=== PATIENT | male | born 1970 | race African-American/Black ===

== ENCOUNTER 2018-09-29 08:19 | Inpatient (IN) | payer OTHER ==
[2018-09-29 09:57] VITALS: BMI 24.5
--- NOTE | 2018-09-29 10:39 | HP ---
CIWA Score - Admission Criteria [facility] Guidelines: Admission for Medically Managed Detox: Requires at least one of the followin. CIWA greater than 12 2. Seizures within the past 24 hours 3. Delirium tremens within the past 24 hours 4. Hallucinations within the past 24 hours 5. Acute intervention needed for co occurring medical disorder 6. Acute intervention needed for co occurring psychiatric disorder 7. Severe withdrawal that cannot be handled at a lower level of care (continued vomiting, continued diarrhea, abnormal vital signs) requiring intravenous medication and/or fluids 8. Admission ROS [facility] - HPI Chief Complaint: i need help to stop drinking alcohol,cocaine,marijuana,k2 Allergies/Adverse Reactions: Allergies Allergy/AdvReac Type Severity Reaction Status Date / Time chlorpromazine HCl AdvReac Intermediate stiffness Verified 09/29/18 10:15 [From Thorazine] haloperidol [From Haldol] AdvReac Intermediate stiffness Verified 09/29/18 10:15 haloperidol lactate AdvReac Intermediate stiffness Verified 09/29/18 10:15 [From Haldol] History of Present Illness: this 48 years old male with alcohol dependence,cocaine,marijuana dependence and k2,seeking help, history of bipolar disorder nicotine dependence seeking help weight loss for rehab as protocol Exam Limitations: No Limitations - Ebola screening Have you traveled outside of the country in the last 21 days: No Have you had contact with anyone from an Ebola affected area: No Have you been sick,other than usual withdrawal symptoms: No Do you have a fever: No - Review of Systems Constitutional: No Symptoms Reported EENT: reports: No Symptoms Reported Respiratory: reports: No Symptoms reported Cardiac: reports: No Symptoms Reported GI: reports: No Symptoms Reported : reports: No Symptoms Reported Musculoskeletal: reports: No Symptoms Reported Integumentary: reports: Dryness Neuro: reports: No Symptoms reported Endocrine: reports: No Symptoms Reported Hematology: reports: No Symptoms Reported Psychiatric: reports: No Sypmtoms Reported, Judgement Intact, Mood/Affect Appropiate, Orientated x3 (bipolar disorder) Patient History - Patient Medical History Hx Anemia: No Hx Asthma: No Hx Chronic Obstructive Pulmonary Disease (COPD): No Hx Cancer: No Hx Cardiac Disorders: No Hx Congestive Heart Failure: No Hx Hypertension: No Hx Hypercholesterolemia: No Hx Pacemaker: No HX Cerebrovascular Accident: No Hx Seizures: No Hx Dementia: No Hx Diabetes: No Hx Gastrointestinal Disorders: No Hx Liver Disease: No Hx Genitourinary Disorders: No Hx Sexually Transmitted Disorders: No Hx Renal Disease (ESRD): No Hx Thyroid Disease: No Hx Human Immunodeficiency Virus (HIV): No Hx Hepatitis C: No Hx Depression: Yes Hx Suicide Attempt: No Hx Bipolar Disorder: Yes (AND ANXIETY) Hx Schizophrenia: No Other Medical History: no suicidal,no homicidal - Patient Surgical History Past Surgical History: No Hx Neurologic Surgery: No Hx Cataract Extraction: No Hx Cardiac Surgery: No Hx Lung Surgery: No Hx Breast Surgery: No Hx Breast Biopsy: No Hx Abdominal Surgery: No Hx Appendectomy: No Hx Cholecystectomy: No Hx Genitourinary Surgery: No Hx Section: No Hx Orthopedic Surgery: No Anesthesia Reaction: No - PPD History Previous Implant?: Yes Documented Results: Negative w/o proof Implanted On Prior R Admission?: Yes Date: 01/22/15 Results: 0 mm PPD to be Administered?: Yes - Smoking Cessation Smoking history: Current every day smoker Have you smoked in the past 12 months: Yes Aproximately how many cigarettes per day: 40 Cigars Per Day: 0 Hx Chewing Tobacco Use: No Initiated information on smoking cessation: Yes 'Breaking Loose' booklet given: 09/29/18 - Substance & Tx. History Hx Alcohol Use: Yes Hx Substance Use: Yes Substance Use Type: Alcohol, Cocaine, Marijuana Hx Substance Use Treatment: Yes ([facility]) - Substances Abused Alcohol Route: Oral Frequency: 1-2 times per week Amount used: 2 pints whiskey Age of first use: 15 Date of Last Use: 09/15/18 Crack Route: Smoking Frequency: Daily Amount used: $180 and up Age of first use: 29 Date of Last Use: 09/28/18 Marijuana/Hashish Route: Smoking Frequency: 1-2 times per week Amount used: 1 joint Age of first use: 13 Date of Last Use: 09/15/18 K2 Route: Smoking Frequency: 1-2 times per week Amount used: 1 joint Age of first use: 29 Date of Last Use: 07/01/18 Family Disease History - Family Disease History Family Disease History: Other: Father (alcohol,), Mother (alcohol, htn , ), Sister (alcohol and cocaine) Admission Physical Exam [facility] - Vital Signs Vital Signs: Vital Signs - 24 hr 09/29/18 09:56 Temperature 96.6 F L Pulse Rate 84 Respiratory 18 Rate Blood Pressure 134/77 - Physical General Appearance: Yes: Within Normal Limits HEENTM: Yes: Normal ENT Inspection, PHILIP, Pharynx Normal Respiratory: Yes: Lungs Clear, Normal Breath Sounds, No Respiratory Distress Neck: Yes: Within Normal Limits, Supple, Trachea in good position Breast: Yes: Within Normal Limits Cardiology: Yes: Within Normal Limits, Regular Rhythm, Regular Rate, S1, S2 Abdominal: Yes: Within Normal Limits, Normal Bowel Sounds, Non Tender, Soft Genitourinary: Yes: Within Normal Limits Back: Yes: Within Normal Limits Musculoskeletal: Yes: Within Normal Limits Extremities: Yes: Within Normal Limits Neurological: Yes: apple sorter II-XII NML intact, Fully Oriented, Alert, Motor Strength 5/5 Integumentary: Yes: Dry Lymphatic: Yes: Within Normal Limits - Diagnostic (1) Alcohol dependence Current Visit: No Status: Acute (2) Weight decreased Current Visit: No Status: Active (3) Cannabis dependence Current Visit: No Status: Acute (4) Cocaine dependence Current Visit: No Status: Acute (5) Nicotine dependence Current Visit: No Status: Chronic (6) Bipolar disorder Current Visit: No Status: Deleted (7) Tinea pedis Current Visit: Yes Status: Acute Cleared for Admission S - Detox or Rehab Claeared for Rehab Admission: Yes [facility] Breath Alcohol Content Breath Alcohol Content: 0 Urine Drug Screen - Results Drug Screen Negative: No Urine Drug Screen Results: THC-Marijuana, DILAN-Cocaine Inpatient Rehab Admission - Initial Determination Are CD services needed?: Yes Free of communicable disease: Yes Not in need of hospitalization: Yes - Rehab Admission Criteria Previous failed treatment: Yes Poor recovery environment: Yes Comorbidities: Yes Lacks judgement: No Patient is meeting Inpatient Rehab admission criteria:: Yes
[2018-09-29] MEDS ORDERED: guaiFENesin/D-METHORPHAN HB 10 ML UNIT-DOSE CUPS PO PRN (10:47)
[2018-09-29] MEDS ORDERED: MENTHOL/PHENOL 1 EACH UD MM PRN (10:47)
[2018-09-29] MEDS ORDERED: IBUPROFEN 400 MG TABLET (FP) PO PRN (10:47)
[2018-09-29] MEDS ORDERED: MAGNESIUM CITRATE 300 ML BOTTLE PO PRN (10:47)
[2018-09-29] MEDS ORDERED: MAGNESIUM HYDROX 2400MG/30ML ORAL SUSPENSION 30 ML CUP PO PRN (10:47)
[2018-09-29] MEDS ORDERED: LOPERAMIDE HCL 2 MG CAPSULE PO PRN (10:47)
[2018-09-29] MEDS ORDERED: P-EPHED 60MG/TRIPROLIDI 2.5MG TABLET PO PRN (10:47)
[2018-09-29] MEDS ORDERED: MAG HYDROX/AL HYDROX/SIMETH 30 ML UNIT-DOSE CUP PO PRN (10:47)
[2018-09-29] MEDS: TOLNAFTATE 1% CREAM 15 GM TUBE TP SCH ×2 (11:46→22:01)
[2018-09-29] MEDS ORDERED: TUBERCULIN PPD 5 TU/0.1ML VIAL ID ONE (12:49)
[2018-09-29 14:04] LABS: HEMATOCRIT 41.6 % (35.4-49); HEMOGLOBIN 13.2 GM/dL (11.7-16.9); MCH 28.4 pg (25.7-33.7); MCHC 31.7 g/dl (32.0-35.9); MEAN CELL VOLUME 89.5 fl (80-96); MEAN PLT VOLUME 9.1 fl (7.5-11.1); PLATELET COUNT 226 K/MM3 (134-434); RBC 4.65 M/mm3 (4.00-5.60); RDW 14.1 % (11.9-15.9); WHITE BLOOD COUNT 5.7 K/mm3 (4.0-10.0)
[2018-09-29 14:41] LABS: ALBUMIN 3.5 g/dl (3.4-5.0); ALK PHOS 73 U/L (45-117); ANION GAP 6 MMOL/L (8-16); BILIRUBIN,TOTAL 0.4 mg/dL (0.2-1); BLOOD UREA NITROGEN 14 mg/dL (7-18); CALCIUM 8.9 mg/dL (8.5-10.1); CHLORIDE 105 mmol/L (98-107); CO2 29 mmol/L (21-32); CREATININE 1.2 mg/dL (0.55-1.3); GLUCOSE,RANDOM 100 mg/dL (74-106); POTASSIUM 4.1 mmol/L (3.5-5.1); SGOT/AST 23 U/L (15-37); SGPT/ALT 23 U/L (13-61); SODIUM 140 mmol/L (136-145); TOT PROT 7.2 g/dl (6.4-8.2)
--- NOTE | 2018-09-29 16:23 | PN ---
Psychiatric Progress Note Vital Signs: Vital Signs Period Temp Pulse Resp BP Sys/Landeros Pulse Ox Last 24 Hr 96.6 F 84 18 134/77 Current Medications: Active Medications Generic Name Dose Route Start Last Admin Trade Name Freq PRN Reason Stop Dose Admin Acetaminophen 650 mg 09/29/18 10:47 Tylenol - PO Q4H PRN FEVER Al Hydroxide/Mg Hydroxide 30 ml 09/29/18 10:47 Mylanta Oral Suspension - PO Q6H PRN DYSPEPSIA Divalproex Sodium 500 mg 09/29/18 22:00 Depakote - PO BID GLENN Eucalyptus/Menthol/Phenol/Sorbitol 1 each 09/29/18 10:47 Cepastat Lozenge - MM Q4H PRN SORE THROAT Guaifenesin 10 ml 09/29/18 10:47 Robitussin Dm - PO Q6H PRN COUGH Hydroxyzine Pamoate 50 mg 09/29/18 10:47 Vistaril - PO Q4H PRN AGITATION Loperamide HCl 4 mg 09/29/18 10:47 Imodium - PO Q6H PRN DIARRHEA Magnesium Citrate 300 ml 09/29/18 10:47 Citroma - PO Q48H PRN CONSTIPATION Magnesium Hydroxide 30 ml 09/29/18 10:47 Milk Of Magnesia - PO DAILY PRN CONSTIPATION Melatonin 5 mg 09/29/18 22:00 Melatonin PO HS PRN INSOMNIA Mirtazapine 45 mg 09/29/18 22:00 Remeron - PO HS GLENN Naproxen 500 mg 09/29/18 10:51 Naprosyn - PO Q12H PRN PAIN Nicotine Polacrilex 4 mg 09/29/18 10:47 Nicorette Gum - BUC Q2H PRN NICOTINE REPLACEMENT RX Multivit/Folic Acid/Iron 1 tab 09/30/18 10:00 Vitamins (Sjr) - PO DAILY GLENN Pseudoephedrine/Triprolidine 1 combo 09/29/18 10:47 Actifed - PO TID PRN NASAL CONGESTION Quetiapine Fumarate 200 mg 09/29/18 22:00 Seroquel - PO HS GLENN Thiamine HCl 100 mg 09/29/18 22:00 Vitamin B1 - PO HS GLENN Tolnaftate 1 applic 09/29/18 11:00 09/29/18 11:46 Tinactin 1% Cream - TP 1 applic BID GLENN Administration
--- NOTE | 2018-09-29 16:26 | PN ---
[facility] Progress Note Note: Called by nursing staff to order medication for newly admitted patient from [facility]. Medication reconcliation done. Depakote 500 mg po BID, Seroquel 200 mg po HS and Remeron 45 mg po HS ordered
--- NOTE | 2018-09-29 17:04 | EKG ---
Test Reason : Blood Pressure : / mmHG Vent. Rate : 079 BPM Atrial Rate : 079 BPM P-R Int : 130 ms QRS Dur : 078 ms QT Int : 382 ms P-R-T Axes : 068 032 068 degrees QTc Int : 438 ms NORMAL SINUS RHYTHM WITH SINUS ARRHYTHMIA NORMAL ECG NO PREVIOUS ECGS AVAILABLE Confirmed by MD ABNER, LUIS ([id number]) on 09/29/2018 5:03:45 PM Referred By: Confirmed By:LUIS LEVINE MD
[2018-09-29 17:23] LABS: URINE APPEARANCE CLEAR; URINE BILIRUBIN NEGATIVE (<2.0 mg/dL); URINE COLOR YELLOW; URINE GLUCOSE (UA) NEGATIVE (NEGATIVE); URINE KETONE NEGATIVE (NEGATIVE); URINE LEUK ESTERASE NEGATIVE (NEGATIVE); URINE NITRITE NEGATIVE (NEGATIVE); URINE PROTEIN NEGATIVE (NEGATIVE); URINE UROBILINOGEN NEGATIVE mg/dL (0.2-1.0)
[2018-09-29] MEDS: NICOTINE POLACRILEX 4 MG GUM BUC PRN (18:31)
[2018-09-29] MEDS: ACETAMINOPHEN 325 MG TABLET (FP) PO PRN (18:37)
[2018-09-29] MEDS: THIAMINE HCL 100 MG TABLET (FP) PO SCH (22:00)
[2018-09-29] MEDS: QUEtiapine FUMARATE 200 MG TABLET PO SCH (22:00)
[2018-09-29] MEDS: DIVALPROEX SODIUM 500 MG TABLET E.C. PO SCH (22:01)
[2018-09-29] MEDS: MIRTAZAPINE 15 MG TABLET (FP) PO SCH (22:01)
--- NOTE | 2018-09-30 07:51 | HP ---
Psychiatrist Admission - Data Date of interview: 09/30/18 Admission source: self-referred Identifying data: This is the first [facility] admission for this 48 years old Black male, father of 2 children, unemployed on SSD, homeless Medical History: Significant for history of herniated disc. Smokes cigarettes 2 ppd Psychiatric History: Patient reports that his first psyhiatric contact was at age 14 when he was admited to [facility] for auditory/visual hallucinations. He was diagnosed with Bipolar/Schizophrenia and started on psychotropic medications. Reports multiple subsequent admissions to various facilities including [facility], [facility] and most recently in August 2018 to [facility] for aggressivity and homicidal ideations. Reports receiving OPD care at [facility] in [place] and he is prescribed Depakote 500 mg po BID, Seroquel 200 mg po HS and Remeron 45 mg po HS. Denies previous suicidal attempt. At present, denies experiencing psychotic, manic or depressive symptoms, S/H ideations Physical/Sexual Abuse/Trauma History: Denies history of emotional, phusical or emotional abuse as well as DV relationship Additional Comment: Reports history of multiple previous arrest including one felony conviction. Denies being on parole/probation at present Vital Signs: Vital Signs - 24 hr 09/29/18 09/30/18 09/30/18 09:56 00:30 03:30 Temperature 96.6 F L Pulse Rate 84 Respiratory 18 18 18 Rate Blood Pressure 134/77 09/30/18 06:51 Temperature 97.4 F L Pulse Rate 97 H Respiratory 20 Rate Blood Pressure 114/78 Allergies/Adverse Reactions: Allergies Allergy/AdvReac Type Severity Reaction Status Date / Time chlorpromazine HCl AdvReac Intermediate stiffness Verified 09/29/18 10:15 [From Thorazine] haloperidol [From Haldol] AdvReac Intermediate stiffness Verified 09/29/18 10:15 haloperidol lactate AdvReac Intermediate stiffness Verified 09/29/18 10:15 [From Haldol] Date of last physical exam: 09/29/18 Concur with the findings of this exam: Yes - Substance Abuse/Tx History Hx Alcohol Use: Yes Hx Substance Use: Yes Substance Use Type: Alcohol (Started drinking alcohol at age 15, consumes 2 pints of whiskey 1-2 times weekly. Last drank on 09/15/18), Cocaine (Started smoking crack cocaine at age 29, consumes $180 woth daily. Last smoked on ), Marijuana (Startedsmoking marijuana at age 13 and k2 at age 29, consumes one joint of each marijuana & k2 1-2 times weekly. Last smoked marijuana on and k2 on 07/01/18) Hx Substance Use Treatment: Yes (4 previous inpt detox admissions @ [facility]) Mental Status Exam - Mental Status Exam Alert and Oriented to: Time, Place, Person Cognitive Function: Fair Patient Appearance: Well Groomed Patient Behavior: Cooperative Speech Pattern: Clear Voice Loudness: Normal Thought Process: Intact, Goal Oriented Thought Disorder: Not Present Hallucinations: Denies Suicidal Ideation: Denies Insight/Judgement: Fair Sleep: Poorly Appetite: Fair Muscle strength/Tone: Normal Gait/Station: Normal Psychiatric Findings - Problem List (Toney 1, 2,3) (1) Alcohol dependence Current Visit: No Status: Acute (2) Cocaine dependence Current Visit: No Status: Acute (3) Cannabis dependence Current Visit: No Status: Acute (4) Nicotine dependence Current Visit: No Status: Chronic (5) Schizoaffective disorder Current Visit: Yes Status: Chronic (6) Substance-induced sleep disorder Current Visit: Yes Status: Acute - Initial Treatment Plan Initial Treatment Plan: 1) Continue Seroquel 200 mg po HS, Depakote 500 mg po BID and Remeron 45 mg po HS. 2) Monitor progress
[2018-09-30] MEDS: TOLNAFTATE 1% CREAM 15 GM TUBE TP SCH ×2 (10:34→21:37)
[2018-09-30] MEDS: DIVALPROEX SODIUM 500 MG TABLET E.C. PO SCH ×2 (10:34→21:36)
[2018-09-30] MEDS: NAPROXEN 500 MG TABLET (FP) PO PRN (10:34)
[2018-09-30] MEDS: PRENATAL VITAMINS W/ FOLIC ACID TABLET (FP) PO SCH (10:34)
[2018-09-30] MEDS: THIAMINE HCL 100 MG TABLET (FP) PO SCH (21:36)
[2018-09-30] MEDS: MIRTAZAPINE 15 MG TABLET (FP) PO SCH (21:36)
[2018-09-30] MEDS: QUEtiapine FUMARATE 200 MG TABLET PO SCH (21:37)
[2018-10-01] MEDS: NAPROXEN 500 MG TABLET (FP) PO PRN (06:48)
[2018-10-01] MEDS: DIVALPROEX SODIUM 500 MG TABLET E.C. PO SCH ×2 (10:34→21:07)
[2018-10-01] MEDS: TOLNAFTATE 1% CREAM 15 GM TUBE TP SCH ×2 (10:34→21:06)
[2018-10-01] MEDS: PRENATAL VITAMINS W/ FOLIC ACID TABLET (FP) PO SCH (10:34)
[2018-10-01] MEDS: ACETAMINOPHEN 325 MG TABLET (FP) PO PRN (15:03)
[2018-10-01] MEDS: NICOTINE POLACRILEX 4 MG GUM BUC PRN (15:03)
[2018-10-01] MEDS ORDERED: MAGNESIUM SULFATE 16 OZ CRYSTALS TP ONE (15:30)
[2018-10-01] MEDS: MIRTAZAPINE 15 MG TABLET (FP) PO SCH (21:07)
[2018-10-01] MEDS: QUEtiapine FUMARATE 200 MG TABLET PO SCH (21:07)
[2018-10-01] MEDS: THIAMINE HCL 100 MG TABLET (FP) PO SCH (21:07)
[2018-10-01] MEDS ORDERED: PT OWN MED DRAWER 7, Y5N ONE (22:03)
[2018-10-02] MEDS: ACETAMINOPHEN 325 MG TABLET (FP) PO PRN (06:16)
[2018-10-02] MEDS ORDERED: PT OWN MED DRAWER 7, Y5N ONE ×2 (08:22→18:29)
[2018-10-02] MEDS: DIVALPROEX SODIUM 500 MG TABLET E.C. PO SCH ×2 (09:44→21:19)
[2018-10-02] MEDS: PRENATAL VITAMINS W/ FOLIC ACID TABLET (FP) PO SCH (09:44)
[2018-10-02] MEDS: TOLNAFTATE 1% CREAM 15 GM TUBE TP SCH ×2 (09:45→21:20)
[2018-10-02] MEDS: hydrOXYzine PAMOATE 50 MG CAPSULE (FP) PO PRN ×2 (13:46→21:19)
--- NOTE | 2018-10-02 14:23 | PN ---
[facility] Progress Note Note: Requesting epsom salt baths- done
[2018-10-02] MEDS: NICOTINE POLACRILEX 4 MG GUM BUC PRN ×2 (16:47→21:18)
[2018-10-02] MEDS: MAGNESIUM SULFATE 16 OZ CRYSTALS TP PRN (18:30)
[2018-10-02] MEDS: MIRTAZAPINE 15 MG TABLET (FP) PO SCH (21:18)
[2018-10-02] MEDS: THIAMINE HCL 100 MG TABLET (FP) PO SCH (21:18)
[2018-10-02] MEDS: QUEtiapine FUMARATE 200 MG TABLET PO SCH (21:18)
[2018-10-03] MEDS ORDERED: PT OWN MED DRAWER 7, Y5N ONE ×2 (08:55→10:12)
[2018-10-03] MEDS: NAPROXEN 500 MG TABLET (FP) PO PRN (10:09)
[2018-10-03] MEDS: hydrOXYzine PAMOATE 50 MG CAPSULE (FP) PO PRN ×2 (10:09→21:11)
[2018-10-03] MEDS: PRENATAL VITAMINS W/ FOLIC ACID TABLET (FP) PO SCH (10:09)
[2018-10-03] MEDS: DIVALPROEX SODIUM 500 MG TABLET E.C. PO SCH ×2 (10:09→21:12)
[2018-10-03] MEDS: MAGNESIUM SULFATE 16 OZ CRYSTALS TP PRN (10:10)
[2018-10-03] MEDS: TOLNAFTATE 1% CREAM 15 GM TUBE TP SCH ×2 (10:11→21:11)
[2018-10-03] MEDS: ACETAMINOPHEN 325 MG TABLET (FP) PO PRN (16:50)
[2018-10-03] MEDS: THIAMINE HCL 100 MG TABLET (FP) PO SCH (21:10)
[2018-10-03] MEDS: QUEtiapine FUMARATE 200 MG TABLET PO SCH (21:11)
[2018-10-03] MEDS: MIRTAZAPINE 15 MG TABLET (FP) PO SCH (21:11)
[2018-10-04] MEDS ORDERED: PT OWN MED DRAWER 7, Y5N ONE (08:53)
[2018-10-04] MEDS: NAPROXEN 500 MG TABLET (FP) PO PRN (09:52)
[2018-10-04] MEDS: DIVALPROEX SODIUM 500 MG TABLET E.C. PO SCH ×2 (09:52→22:01)
[2018-10-04] MEDS: PRENATAL VITAMINS W/ FOLIC ACID TABLET (FP) PO SCH (09:52)
[2018-10-04] MEDS: hydrOXYzine PAMOATE 50 MG CAPSULE (FP) PO PRN (09:52)
[2018-10-04] MEDS: NICOTINE POLACRILEX 4 MG GUM BUC PRN ×3 (09:53→20:28)
[2018-10-04] MEDS: MAGNESIUM SULFATE 16 OZ CRYSTALS TP PRN (09:53)
[2018-10-04] MEDS: TOLNAFTATE 1% CREAM 15 GM TUBE TP SCH ×2 (09:53→22:01)
[2018-10-04] MEDS: MIRTAZAPINE 15 MG TABLET (FP) PO SCH (22:01)
[2018-10-04] MEDS: QUEtiapine FUMARATE 200 MG TABLET PO SCH (22:01)
[2018-10-04] MEDS: THIAMINE HCL 100 MG TABLET (FP) PO SCH (22:02)
[2018-10-05] MEDS: PRENATAL VITAMINS W/ FOLIC ACID TABLET (FP) PO SCH (10:10)
[2018-10-05] MEDS: NAPROXEN 500 MG TABLET (FP) PO PRN ×2 (10:10→21:39)
[2018-10-05] MEDS: DIVALPROEX SODIUM 500 MG TABLET E.C. PO SCH ×2 (10:11→21:39)
[2018-10-05] MEDS: TOLNAFTATE 1% CREAM 15 GM TUBE TP SCH ×2 (10:11→21:40)
[2018-10-05] MEDS: hydrOXYzine PAMOATE 50 MG CAPSULE (FP) PO PRN (10:11)
[2018-10-05] MEDS: MAGNESIUM SULFATE 16 OZ CRYSTALS TP PRN (10:11)
[2018-10-05] MEDS: NICOTINE POLACRILEX 4 MG GUM BUC PRN (10:12)
[2018-10-05] MEDS: ACETAMINOPHEN 325 MG TABLET (FP) PO PRN (15:04)
[2018-10-05] MEDS ORDERED: PT OWN MED DRAWER 7, Y5N ONE (16:58)
[2018-10-05] MEDS: MIRTAZAPINE 15 MG TABLET (FP) PO SCH (21:39)
[2018-10-05] MEDS: QUEtiapine FUMARATE 200 MG TABLET PO SCH (21:39)
[2018-10-05] MEDS: THIAMINE HCL 100 MG TABLET (FP) PO SCH (21:40)
[2018-10-06] MEDS: DIVALPROEX SODIUM 500 MG TABLET E.C. PO SCH ×2 (09:38→21:52)
[2018-10-06] MEDS: PRENATAL VITAMINS W/ FOLIC ACID TABLET (FP) PO SCH (09:38)
[2018-10-06] MEDS: ACETAMINOPHEN 325 MG TABLET (FP) PO PRN (09:39)
[2018-10-06] MEDS: NICOTINE POLACRILEX 4 MG GUM BUC PRN ×2 (09:43→21:52)
[2018-10-06] MEDS: TOLNAFTATE 1% CREAM 15 GM TUBE TP SCH ×2 (11:11→21:53)
[2018-10-06] MEDS: QUEtiapine FUMARATE 200 MG TABLET PO SCH (21:52)
[2018-10-06] MEDS: MIRTAZAPINE 15 MG TABLET (FP) PO SCH (21:52)
[2018-10-06] MEDS: THIAMINE HCL 100 MG TABLET (FP) PO SCH (21:52)
[2018-10-06] MEDS: hydrOXYzine PAMOATE 50 MG CAPSULE (FP) PO PRN (21:52)
[2018-10-07] MEDS ORDERED: PT OWN MED DRAWER 7, Y5N ONE ×3 (08:25→19:22)
[2018-10-07] MEDS: DIVALPROEX SODIUM 500 MG TABLET E.C. PO SCH ×2 (09:53→21:47)
[2018-10-07] MEDS: TOLNAFTATE 1% CREAM 15 GM TUBE TP SCH ×2 (09:53→21:48)
[2018-10-07] MEDS: PRENATAL VITAMINS W/ FOLIC ACID TABLET (FP) PO SCH (09:53)
[2018-10-07] MEDS: NICOTINE POLACRILEX 4 MG GUM BUC PRN ×2 (09:54→21:48)
[2018-10-07] MEDS: MAGNESIUM SULFATE 16 OZ CRYSTALS TP PRN (15:54)
[2018-10-07] MEDS: ACETAMINOPHEN 325 MG TABLET (FP) PO PRN (15:56)
[2018-10-07] MEDS: THIAMINE HCL 100 MG TABLET (FP) PO SCH (21:47)
[2018-10-07] MEDS: QUEtiapine FUMARATE 200 MG TABLET PO SCH (21:47)
[2018-10-07] MEDS: MIRTAZAPINE 15 MG TABLET (FP) PO SCH (21:47)
[2018-10-08] MEDS: hydrOXYzine PAMOATE 50 MG CAPSULE (FP) PO PRN ×2 (09:44→21:14)
[2018-10-08] MEDS: DIVALPROEX SODIUM 500 MG TABLET E.C. PO SCH ×2 (09:44→21:14)
[2018-10-08] MEDS: PRENATAL VITAMINS W/ FOLIC ACID TABLET (FP) PO SCH (09:44)
[2018-10-08] MEDS: TOLNAFTATE 1% CREAM 15 GM TUBE TP SCH ×2 (09:44→21:15)
[2018-10-08] MEDS: NAPROXEN 500 MG TABLET (FP) PO PRN (09:44)
[2018-10-08] MEDS: NICOTINE POLACRILEX 4 MG GUM BUC PRN ×2 (09:45→21:15)
[2018-10-08] MEDS: THIAMINE HCL 100 MG TABLET (FP) PO SCH (21:14)
[2018-10-08] MEDS: QUEtiapine FUMARATE 200 MG TABLET PO SCH (21:14)
[2018-10-08] MEDS: MIRTAZAPINE 15 MG TABLET (FP) PO SCH (21:14)
[2018-10-09] MEDS ORDERED: PT OWN MED DRAWER 7, Y5N ONE (08:25)
[2018-10-09] MEDS: TOLNAFTATE 1% CREAM 15 GM TUBE TP SCH ×2 (10:09→21:53)
[2018-10-09] MEDS: PRENATAL VITAMINS W/ FOLIC ACID TABLET (FP) PO SCH (10:36)
[2018-10-09] MEDS: DIVALPROEX SODIUM 500 MG TABLET E.C. PO SCH ×2 (10:36→21:51)
[2018-10-09] MEDS: ACETAMINOPHEN 325 MG TABLET (FP) PO PRN (10:38)
[2018-10-09] MEDS: NICOTINE POLACRILEX 4 MG GUM BUC PRN ×2 (10:39→21:52)
[2018-10-09] MEDS: THIAMINE HCL 100 MG TABLET (FP) PO SCH (21:51)
[2018-10-09] MEDS: QUEtiapine FUMARATE 200 MG TABLET PO SCH (21:51)
[2018-10-09] MEDS: NAPROXEN 500 MG TABLET (FP) PO PRN (21:52)
[2018-10-09] MEDS: hydrOXYzine PAMOATE 50 MG CAPSULE (FP) PO PRN (21:52)
[2018-10-09] MEDS: MIRTAZAPINE 15 MG TABLET (FP) PO SCH (21:52)
[2018-10-10] MEDS: PRENATAL VITAMINS W/ FOLIC ACID TABLET (FP) PO SCH (09:35)
[2018-10-10] MEDS: DIVALPROEX SODIUM 500 MG TABLET E.C. PO SCH ×2 (09:35→21:22)
[2018-10-10] MEDS: TOLNAFTATE 1% CREAM 15 GM TUBE TP SCH ×2 (09:36→21:23)
[2018-10-10] MEDS: NICOTINE POLACRILEX 4 MG GUM BUC PRN ×2 (09:36→19:19)
[2018-10-10] MEDS: MIRTAZAPINE 15 MG TABLET (FP) PO SCH (21:21)
[2018-10-10] MEDS: THIAMINE HCL 100 MG TABLET (FP) PO SCH (21:21)
[2018-10-10] MEDS: QUEtiapine FUMARATE 200 MG TABLET PO SCH (21:21)
[2018-10-10] MEDS: NAPROXEN 500 MG TABLET (FP) PO PRN (21:21)
[2018-10-11] MEDS: TOLNAFTATE 1% CREAM 15 GM TUBE TP SCH ×2 (09:43→21:37)
[2018-10-11] MEDS: PRENATAL VITAMINS W/ FOLIC ACID TABLET (FP) PO SCH (09:43)
[2018-10-11] MEDS: DIVALPROEX SODIUM 500 MG TABLET E.C. PO SCH ×2 (09:43→21:36)
[2018-10-11] MEDS: NICOTINE POLACRILEX 4 MG GUM BUC PRN (09:44)
[2018-10-11] MEDS: ACETAMINOPHEN 325 MG TABLET (FP) PO PRN (09:44)
[2018-10-11] MEDS ORDERED: PT OWN MED DRAWER 7, Y5N ONE (20:15)
[2018-10-11] MEDS: THIAMINE HCL 100 MG TABLET (FP) PO SCH (21:36)
[2018-10-11] MEDS: QUEtiapine FUMARATE 200 MG TABLET PO SCH (21:36)
[2018-10-11] MEDS: MIRTAZAPINE 15 MG TABLET (FP) PO SCH (21:36)
[2018-10-12] MEDS ORDERED: PT OWN MED DRAWER 7, Y5N ONE (08:38)
[2018-10-12] MEDS: DIVALPROEX SODIUM 500 MG TABLET E.C. PO SCH ×2 (10:34→22:00)
[2018-10-12] MEDS: PRENATAL VITAMINS W/ FOLIC ACID TABLET (FP) PO SCH (10:34)
[2018-10-12] MEDS: TOLNAFTATE 1% CREAM 15 GM TUBE TP SCH ×2 (10:34→22:01)
[2018-10-12] MEDS: MAGNESIUM SULFATE 16 OZ CRYSTALS TP PRN (10:35)
[2018-10-12] MEDS: ACETAMINOPHEN 325 MG TABLET (FP) PO PRN (10:36)
[2018-10-12] MEDS: NICOTINE POLACRILEX 4 MG GUM BUC PRN (10:37)
[2018-10-12] MEDS: MIRTAZAPINE 15 MG TABLET (FP) PO SCH (22:00)
[2018-10-12] MEDS: QUEtiapine FUMARATE 200 MG TABLET PO SCH (22:00)
[2018-10-12] MEDS: hydrOXYzine PAMOATE 50 MG CAPSULE (FP) PO PRN (22:00)
[2018-10-12] MEDS: THIAMINE HCL 100 MG TABLET (FP) PO SCH (22:00)
[2018-10-13] MEDS: DIVALPROEX SODIUM 500 MG TABLET E.C. PO SCH ×2 (09:49→21:06)
[2018-10-13] MEDS: PRENATAL VITAMINS W/ FOLIC ACID TABLET (FP) PO SCH (09:49)
[2018-10-13] MEDS: hydrOXYzine PAMOATE 50 MG CAPSULE (FP) PO PRN ×2 (09:49→21:06)
[2018-10-13] MEDS: NAPROXEN 500 MG TABLET (FP) PO PRN (09:49)
[2018-10-13] MEDS: TOLNAFTATE 1% CREAM 15 GM TUBE TP SCH ×2 (09:50→21:07)
[2018-10-13] MEDS: NICOTINE POLACRILEX 4 MG GUM BUC PRN ×2 (15:47→21:07)
[2018-10-13] MEDS: THIAMINE HCL 100 MG TABLET (FP) PO SCH (21:06)
[2018-10-13] MEDS: MIRTAZAPINE 15 MG TABLET (FP) PO SCH (21:06)
[2018-10-13] MEDS: QUEtiapine FUMARATE 200 MG TABLET PO SCH (21:06)
[2018-10-14] MEDS: NAPROXEN 500 MG TABLET (FP) PO PRN ×2 (09:44→21:42)
[2018-10-14] MEDS: hydrOXYzine PAMOATE 50 MG CAPSULE (FP) PO PRN (09:44)
[2018-10-14] MEDS: PRENATAL VITAMINS W/ FOLIC ACID TABLET (FP) PO SCH (09:44)
[2018-10-14] MEDS: DIVALPROEX SODIUM 500 MG TABLET E.C. PO SCH ×2 (09:44→21:41)
[2018-10-14] MEDS: NICOTINE POLACRILEX 4 MG GUM BUC PRN ×3 (09:45→21:43)
[2018-10-14] MEDS: TOLNAFTATE 1% CREAM 15 GM TUBE TP SCH ×2 (09:45→21:41)
[2018-10-14] MEDS ORDERED: PT OWN MED DRAWER 7, Y5N ONE (19:16)
[2018-10-14] MEDS: QUEtiapine FUMARATE 200 MG TABLET PO SCH (21:41)
[2018-10-14] MEDS: MIRTAZAPINE 15 MG TABLET (FP) PO SCH (21:41)
[2018-10-14] MEDS: THIAMINE HCL 100 MG TABLET (FP) PO SCH (21:41)
[2018-10-15] MEDS: PRENATAL VITAMINS W/ FOLIC ACID TABLET (FP) PO SCH (10:05)
[2018-10-15] MEDS: DIVALPROEX SODIUM 500 MG TABLET E.C. PO SCH ×2 (10:05→21:47)
[2018-10-15] MEDS: ACETAMINOPHEN 325 MG TABLET (FP) PO PRN (10:06)
[2018-10-15] MEDS: NICOTINE POLACRILEX 4 MG GUM BUC PRN ×2 (10:06→21:48)
[2018-10-15] MEDS: TOLNAFTATE 1% CREAM 15 GM TUBE TP SCH ×2 (10:18→21:48)
[2018-10-15] MEDS: MIRTAZAPINE 15 MG TABLET (FP) PO SCH (21:47)
[2018-10-15] MEDS: THIAMINE HCL 100 MG TABLET (FP) PO SCH (21:47)
[2018-10-15] MEDS: hydrOXYzine PAMOATE 50 MG CAPSULE (FP) PO PRN (21:47)
[2018-10-15] MEDS: QUEtiapine FUMARATE 200 MG TABLET PO SCH (21:47)
[2018-10-16] MEDS: NAPROXEN 500 MG TABLET (FP) PO PRN ×2 (09:56→21:28)
[2018-10-16] MEDS: hydrOXYzine PAMOATE 50 MG CAPSULE (FP) PO PRN ×2 (09:56→21:28)
[2018-10-16] MEDS: PRENATAL VITAMINS W/ FOLIC ACID TABLET (FP) PO SCH (09:56)
[2018-10-16] MEDS: NICOTINE POLACRILEX 4 MG GUM BUC PRN ×2 (09:56→21:30)
[2018-10-16] MEDS: DIVALPROEX SODIUM 500 MG TABLET E.C. PO SCH ×2 (09:56→21:28)
[2018-10-16] MEDS: TOLNAFTATE 1% CREAM 15 GM TUBE TP SCH ×2 (10:32→21:28)
[2018-10-16] MEDS: QUEtiapine FUMARATE 200 MG TABLET PO SCH (21:28)
[2018-10-16] MEDS: MIRTAZAPINE 15 MG TABLET (FP) PO SCH (21:28)
[2018-10-16] MEDS: THIAMINE HCL 100 MG TABLET (FP) PO SCH (21:28)
[2018-10-17] MEDS: PRENATAL VITAMINS W/ FOLIC ACID TABLET (FP) PO SCH (10:05)
[2018-10-17] MEDS: TOLNAFTATE 1% CREAM 15 GM TUBE TP SCH ×2 (10:06→21:39)
[2018-10-17] MEDS: NAPROXEN 500 MG TABLET (FP) PO PRN ×2 (10:06→21:37)
[2018-10-17] MEDS: DIVALPROEX SODIUM 500 MG TABLET E.C. PO SCH ×2 (10:06→21:37)
[2018-10-17] MEDS: hydrOXYzine PAMOATE 50 MG CAPSULE (FP) PO PRN ×2 (10:06→21:37)
[2018-10-17] MEDS: MAGNESIUM SULFATE 16 OZ CRYSTALS TP PRN (21:37)
[2018-10-17] MEDS: QUEtiapine FUMARATE 200 MG TABLET PO SCH (21:37)
[2018-10-17] MEDS: MIRTAZAPINE 15 MG TABLET (FP) PO SCH (21:37)
[2018-10-17] MEDS: THIAMINE HCL 100 MG TABLET (FP) PO SCH (21:37)
[2018-10-17] MEDS ORDERED: PT OWN MED DRAWER 7, Y5N ONE (21:38)
[2018-10-18] MEDS: NAPROXEN 500 MG TABLET (FP) PO PRN ×2 (10:25→21:19)
[2018-10-18] MEDS: hydrOXYzine PAMOATE 50 MG CAPSULE (FP) PO PRN ×2 (10:25→21:19)
[2018-10-18] MEDS: TOLNAFTATE 1% CREAM 15 GM TUBE TP SCH ×2 (10:25→21:20)
[2018-10-18] MEDS: PRENATAL VITAMINS W/ FOLIC ACID TABLET (FP) PO SCH (10:25)
[2018-10-18] MEDS: DIVALPROEX SODIUM 500 MG TABLET E.C. PO SCH ×2 (10:25→21:19)
[2018-10-18] MEDS: NICOTINE POLACRILEX 4 MG GUM BUC PRN ×2 (16:37→21:20)
[2018-10-18] MEDS: MIRTAZAPINE 15 MG TABLET (FP) PO SCH (21:19)
[2018-10-18] MEDS: THIAMINE HCL 100 MG TABLET (FP) PO SCH (21:19)
[2018-10-18] MEDS: QUEtiapine FUMARATE 200 MG TABLET PO SCH (21:19)
[2018-10-19] MEDS: PRENATAL VITAMINS W/ FOLIC ACID TABLET (FP) PO SCH (10:00)
[2018-10-19] MEDS: DIVALPROEX SODIUM 500 MG TABLET E.C. PO SCH ×2 (10:00→21:41)
[2018-10-19] MEDS: TOLNAFTATE 1% CREAM 15 GM TUBE TP SCH ×2 (10:00→21:40)
[2018-10-19] MEDS: ACETAMINOPHEN 325 MG TABLET (FP) PO PRN (10:03)
[2018-10-19] MEDS: NICOTINE POLACRILEX 4 MG GUM BUC PRN ×2 (10:03→21:42)
[2018-10-19] MEDS: THIAMINE HCL 100 MG TABLET (FP) PO SCH (21:40)
[2018-10-19] MEDS: MIRTAZAPINE 15 MG TABLET (FP) PO SCH (21:41)
[2018-10-19] MEDS: QUEtiapine FUMARATE 200 MG TABLET PO SCH (21:42)
[2018-10-19] MEDS: MELATONIN 5 MG TABLETS PO PRN (21:43)
[2018-10-20] MEDS: PRENATAL VITAMINS W/ FOLIC ACID TABLET (FP) PO SCH (10:15)
[2018-10-20] MEDS: DIVALPROEX SODIUM 500 MG TABLET E.C. PO SCH ×2 (10:15→21:31)
[2018-10-20] MEDS: NICOTINE POLACRILEX 4 MG GUM BUC PRN ×2 (10:16→21:33)
[2018-10-20] MEDS: TOLNAFTATE 1% CREAM 15 GM TUBE TP SCH ×2 (10:16→21:29)
[2018-10-20] MEDS: hydrOXYzine PAMOATE 50 MG CAPSULE (FP) PO PRN (21:31)
[2018-10-20] MEDS: MELATONIN 5 MG TABLETS PO PRN (21:31)
[2018-10-20] MEDS: THIAMINE HCL 100 MG TABLET (FP) PO SCH (21:31)
[2018-10-20] MEDS: QUEtiapine FUMARATE 200 MG TABLET PO SCH (21:31)
[2018-10-20] MEDS: MIRTAZAPINE 15 MG TABLET (FP) PO SCH (21:31)
[2018-10-21] MEDS: DIVALPROEX SODIUM 500 MG TABLET E.C. PO SCH ×2 (09:46→21:56)
[2018-10-21] MEDS: TOLNAFTATE 1% CREAM 15 GM TUBE TP SCH ×2 (09:46→21:58)
[2018-10-21] MEDS: PRENATAL VITAMINS W/ FOLIC ACID TABLET (FP) PO SCH (09:46)
[2018-10-21] MEDS: NICOTINE POLACRILEX 4 MG GUM BUC PRN ×2 (09:47→21:58)
[2018-10-21] MEDS: ACETAMINOPHEN 325 MG TABLET (FP) PO PRN (09:47)
[2018-10-21] MEDS ORDERED: PT OWN MED DRAWER 7, Y5N ONE (10:35)
[2018-10-21] MEDS: MIRTAZAPINE 15 MG TABLET (FP) PO SCH (21:55)
[2018-10-21] MEDS: THIAMINE HCL 100 MG TABLET (FP) PO SCH (21:55)
[2018-10-21] MEDS: hydrOXYzine PAMOATE 50 MG CAPSULE (FP) PO PRN (21:56)
[2018-10-21] MEDS: MELATONIN 5 MG TABLETS PO PRN (21:56)
[2018-10-21] MEDS: QUEtiapine FUMARATE 200 MG TABLET PO SCH (21:56)
[2018-10-22] MEDS: DIVALPROEX SODIUM 500 MG TABLET E.C. PO SCH ×2 (09:57→21:21)
[2018-10-22] MEDS: PRENATAL VITAMINS W/ FOLIC ACID TABLET (FP) PO SCH (09:57)
[2018-10-22] MEDS: TOLNAFTATE 1% CREAM 15 GM TUBE TP SCH ×2 (09:58→21:21)
[2018-10-22] MEDS: NICOTINE POLACRILEX 4 MG GUM BUC PRN (09:59)
[2018-10-22] MEDS: hydrOXYzine PAMOATE 50 MG CAPSULE (FP) PO PRN (21:21)
[2018-10-22] MEDS: QUEtiapine FUMARATE 200 MG TABLET PO SCH (21:21)
[2018-10-22] MEDS: MIRTAZAPINE 15 MG TABLET (FP) PO SCH (21:21)
[2018-10-22] MEDS: MELATONIN 5 MG TABLETS PO PRN (21:21)
[2018-10-22] MEDS: THIAMINE HCL 100 MG TABLET (FP) PO SCH (21:22)
[2018-10-23] MEDS: PRENATAL VITAMINS W/ FOLIC ACID TABLET (FP) PO SCH (10:56)
[2018-10-23] MEDS: TOLNAFTATE 1% CREAM 15 GM TUBE TP SCH ×2 (10:56→21:34)
[2018-10-23] MEDS: DIVALPROEX SODIUM 500 MG TABLET E.C. PO SCH ×2 (10:56→21:33)
[2018-10-23] MEDS: NICOTINE POLACRILEX 4 MG GUM BUC PRN (10:56)
[2018-10-23] MEDS: ACETAMINOPHEN 325 MG TABLET (FP) PO PRN (10:57)
[2018-10-23] MEDS: MIRTAZAPINE 15 MG TABLET (FP) PO SCH (21:33)
[2018-10-23] MEDS: THIAMINE HCL 100 MG TABLET (FP) PO SCH (21:33)
[2018-10-23] MEDS: QUEtiapine FUMARATE 200 MG TABLET PO SCH (21:34)
[2018-10-23] MEDS: hydrOXYzine PAMOATE 50 MG CAPSULE (FP) PO PRN (21:34)
[2018-10-23] MEDS: MELATONIN 5 MG TABLETS PO PRN (21:34)
[2018-10-24] MEDS: NICOTINE POLACRILEX 4 MG GUM BUC PRN ×2 (09:25→21:58)
[2018-10-24] MEDS: DIVALPROEX SODIUM 500 MG TABLET E.C. PO SCH ×2 (09:25→21:55)
[2018-10-24] MEDS: NAPROXEN 500 MG TABLET (FP) PO PRN (09:25)
[2018-10-24] MEDS: PRENATAL VITAMINS W/ FOLIC ACID TABLET (FP) PO SCH (09:25)
[2018-10-24] MEDS: TOLNAFTATE 1% CREAM 15 GM TUBE TP SCH ×2 (10:11→22:18)
[2018-10-24] MEDS: THIAMINE HCL 100 MG TABLET (FP) PO SCH (21:55)
[2018-10-24] MEDS: hydrOXYzine PAMOATE 50 MG CAPSULE (FP) PO PRN (21:55)
[2018-10-24] MEDS: QUEtiapine FUMARATE 200 MG TABLET PO SCH (21:55)
[2018-10-24] MEDS: MIRTAZAPINE 15 MG TABLET (FP) PO SCH (21:55)
[2018-10-24] MEDS: MELATONIN 5 MG TABLETS PO PRN (21:57)
[2018-10-25] MEDS: DIVALPROEX SODIUM 500 MG TABLET E.C. PO SCH ×2 (09:45→21:54)
[2018-10-25] MEDS: PRENATAL VITAMINS W/ FOLIC ACID TABLET (FP) PO SCH (09:45)
[2018-10-25] MEDS: ACETAMINOPHEN 325 MG TABLET (FP) PO PRN (09:46)
[2018-10-25] MEDS: NICOTINE POLACRILEX 4 MG GUM BUC PRN ×3 (09:47→21:56)
[2018-10-25] MEDS: TOLNAFTATE 1% CREAM 15 GM TUBE TP SCH ×2 (09:47→21:54)
[2018-10-25] MEDS ORDERED: PT OWN MED DRAWER 7, Y5N ONE (19:54)
[2018-10-25] MEDS: MIRTAZAPINE 15 MG TABLET (FP) PO SCH (21:54)
[2018-10-25] MEDS: QUEtiapine FUMARATE 200 MG TABLET PO SCH (21:55)
[2018-10-25] MEDS: THIAMINE HCL 100 MG TABLET (FP) PO SCH (21:55)
[2018-10-25] MEDS: MELATONIN 5 MG TABLETS PO PRN (21:56)
[2018-10-26] MEDS: ACETAMINOPHEN 325 MG TABLET (FP) PO PRN (09:45)
[2018-10-26] MEDS: PRENATAL VITAMINS W/ FOLIC ACID TABLET (FP) PO SCH (09:45)
[2018-10-26] MEDS: DIVALPROEX SODIUM 500 MG TABLET E.C. PO SCH ×2 (09:45→21:34)
[2018-10-26] MEDS: DOCUSATE SODIUM 100 MG CAPSULE (FP) PO SCH ×2 (09:45→21:34)
[2018-10-26] MEDS: NICOTINE POLACRILEX 4 MG GUM BUC PRN (09:47)
[2018-10-26] MEDS: TOLNAFTATE 1% CREAM 15 GM TUBE TP SCH ×2 (10:19→21:35)
[2018-10-26] MEDS: MELATONIN 5 MG TABLETS PO PRN (21:33)
[2018-10-26] MEDS: THIAMINE HCL 100 MG TABLET (FP) PO SCH (21:33)
[2018-10-26] MEDS: MIRTAZAPINE 15 MG TABLET (FP) PO SCH (21:34)
[2018-10-26] MEDS: QUEtiapine FUMARATE 200 MG TABLET PO SCH (21:34)
[2018-10-26] MEDS: hydrOXYzine PAMOATE 50 MG CAPSULE (FP) PO PRN (21:34)
[2018-10-27] MEDS: PRENATAL VITAMINS W/ FOLIC ACID TABLET (FP) PO SCH (10:30)
[2018-10-27] MEDS: DOCUSATE SODIUM 100 MG CAPSULE (FP) PO SCH ×2 (10:31→22:08)
[2018-10-27] MEDS: TOLNAFTATE 1% CREAM 15 GM TUBE TP SCH ×2 (10:31→22:08)
[2018-10-27] MEDS: DIVALPROEX SODIUM 500 MG TABLET E.C. PO SCH ×2 (10:31→22:08)
[2018-10-27] MEDS ORDERED: PT OWN MED DRAWER 7, Y5N ONE (19:26)
[2018-10-27] MEDS: THIAMINE HCL 100 MG TABLET (FP) PO SCH (22:08)
[2018-10-27] MEDS: MIRTAZAPINE 15 MG TABLET (FP) PO SCH (22:08)
[2018-10-27] MEDS: QUEtiapine FUMARATE 200 MG TABLET PO SCH (22:08)
[2018-10-27] MEDS: MELATONIN 5 MG TABLETS PO PRN (22:08)
[2018-10-27] MEDS: NICOTINE POLACRILEX 4 MG GUM BUC PRN (22:11)
--- NOTE | 2018-10-28 07:07 | PN ---
Psychiatric Progress Note Vital Signs: Vital Signs Period Temp Pulse Resp BP Sys/Landeros Pulse Ox Last 24 Hr 97.4 F 89 18-18 98/75 Date of Session: 10/28/18 Chief Complaint:: Discharge Note HPI: Patient addressing Alcohol, Cocaine and Cannabis Dependence comorbid with Nicotine Dependence , Schizoaffective Disorder and Substance-Induced Slep Disorder Current Medications: Active Medications Generic Name Dose Route Start Last Admin Trade Name Freq PRN Reason Stop Dose Admin Acetaminophen 650 mg 09/29/18 10:47 10/26/18 09:45 Tylenol - PO 650 mg Q4H PRN Administration FEVER Al Hydroxide/Mg Hydroxide 30 ml 09/29/18 10:47 Mylanta Oral Suspension - PO Q6H PRN DYSPEPSIA Divalproex Sodium 500 mg 09/29/18 22:00 10/27/18 22:08 Depakote - PO 500 mg BID GLENN Administration Docusate Sodium 100 mg 10/26/18 10:00 10/27/18 22:08 Colace - PO 100 mg BID GLENN Administration Eucalyptus/Menthol/Phenol/Sorbitol 1 each 09/29/18 10:47 Cepastat Lozenge - MM Q4H PRN SORE THROAT Guaifenesin 10 ml 09/29/18 10:47 Robitussin Dm - PO Q6H PRN COUGH Hydroxyzine Pamoate 50 mg 09/29/18 10:47 10/26/18 21:34 Vistaril - PO 50 mg Q4H PRN Administration AGITATION Loperamide HCl 4 mg 09/29/18 10:47 Imodium - PO Q6H PRN DIARRHEA Magnesium Citrate 300 ml 09/29/18 10:47 Citroma - PO Q48H PRN CONSTIPATION Magnesium Hydroxide 30 ml 09/29/18 10:47 Milk Of Magnesia - PO DAILY PRN CONSTIPATION Magnesium Sulfate 1 applic 10/02/18 14:21 10/17/18 21:37 Epsom Salt - TP 1 applic BID PRN Administration DRY SKIN Melatonin 5 mg 09/29/18 22:00 10/27/18 22:08 Melatonin PO 5 mg HS PRN Administration INSOMNIA Mirtazapine 45 mg 09/29/18 22:00 10/27/18 22:08 Remeron - PO 45 mg HS GLENN Administration Naproxen 500 mg 09/29/18 10:51 10/24/18 09:25 Naprosyn - PO 500 mg Q12H PRN Administration PAIN Nicotine Polacrilex 4 mg 09/29/18 10:47 10/27/18 22:11 Nicorette Gum - BUC 4 mg Q2H PRN Administration NICOTINE REPLACEMENT RX Multivit/Folic Acid/Iron 1 tab 09/30/18 10:00 10/27/18 10:30 Vitamins (Sjr) - PO 1 tab DAILY GLENN Administration Pseudoephedrine/Triprolidine 1 combo 09/29/18 10:47 Actifed - PO TID PRN NASAL CONGESTION Quetiapine Fumarate 200 mg 09/29/18 22:00 10/27/18 22:08 Seroquel - PO 200 mg HS GLENN Administration Thiamine HCl 100 mg 09/29/18 22:00 10/27/18 22:08 Vitamin B1 - PO 100 mg HS GLENN Administration Tolnaftate 1 applic 09/29/18 11:00 10/27/18 22:08 Tinactin 1% Cream - TP Not Given BID GLENN Current Side Effect: No Lab tests ordered: Yes Lab tests reviewed: Yes Provider note:: Patient will complete this program on 10/29/18. He has met his treatment goals and will continue to address his issues in nursing home residential treatment at [facility] at [address] [place] [address]. Told insurance writer that from his participation in this program, he has learned acceptance and one day at a time. He responded well to Seroquel 200 mg po HS, Depakote 500 mg po BID and Remeron 45 mg po HS. Scripts fro 30 days supply of medications will be electronically transmitted to [facility] at [address] [place] [address]. He is stable for discharge on 10/29/18 Total face to face time:: 35 Mental Status Exam - Mental Status Exam Alert and Oriented to: Time, Place, Person Cognitive Function: Fair Patient Appearance: Well Groomed Mood: Hopeful, Euthymic Affect: Appropriate Patient Behavior: Cooperative Speech Pattern: Clear Voice Loudness: Normal Thought Process: Intact, Goal Oriented Thought Disorder: Not Present Hallucinations: Denies Suicidal Ideation: Denies Insight/Judgement: Fair Sleep: Fair Appetite: Good Muscle strength/Tone: Normal Gait/Station: Normal Psychiatric Treatment Plan - Problem List (1) Alcohol dependence Current Visit: No (2) Cocaine dependence Current Visit: No (3) Cannabis dependence Current Visit: No (4) Nicotine dependence Current Visit: No (5) Schizoaffective disorder Current Visit: Yes (6) Substance-induced sleep disorder Current Visit: Yes Initial treatment plan: Patient will be discharged tomorrow and referred to [facility] for bed bug exterminator residential treatment
[2018-10-28] MEDS: ACETAMINOPHEN 325 MG TABLET (FP) PO PRN (09:46)
[2018-10-28] MEDS: DOCUSATE SODIUM 100 MG CAPSULE (FP) PO SCH ×2 (09:46→23:05)
[2018-10-28] MEDS: PRENATAL VITAMINS W/ FOLIC ACID TABLET (FP) PO SCH (09:46)
[2018-10-28] MEDS: DIVALPROEX SODIUM 500 MG TABLET E.C. PO SCH ×2 (09:46→23:05)
[2018-10-28] MEDS: NICOTINE POLACRILEX 4 MG GUM BUC PRN ×3 (09:47→23:06)
[2018-10-28] MEDS: TOLNAFTATE 1% CREAM 15 GM TUBE TP SCH ×2 (09:47→23:06)
[2018-10-28] MEDS ORDERED: PT OWN MED DRAWER 7, Y5N ONE (11:43)
[2018-10-28] MEDS: hydrOXYzine PAMOATE 50 MG CAPSULE (FP) PO PRN (23:05)
[2018-10-28] MEDS: THIAMINE HCL 100 MG TABLET (FP) PO SCH (23:05)
[2018-10-28] MEDS: MELATONIN 5 MG TABLETS PO PRN (23:05)
[2018-10-28] MEDS: MIRTAZAPINE 15 MG TABLET (FP) PO SCH (23:05)
[2018-10-28] MEDS: QUEtiapine FUMARATE 200 MG TABLET PO SCH (23:05)
[2018-10-29 07:13] VITALS: BP 92/67; PULSE 79; TEMP 97.5
[2018-10-29] MEDS: TOLNAFTATE 1% CREAM 15 GM TUBE TP SCH (09:23)
[2018-10-29] MEDS: PRENATAL VITAMINS W/ FOLIC ACID TABLET (FP) PO SCH (09:23)
[2018-10-29] MEDS: DIVALPROEX SODIUM 500 MG TABLET E.C. PO SCH (09:23)
[2018-10-29] MEDS: DOCUSATE SODIUM 100 MG CAPSULE (FP) PO SCH (09:23)
[2018-10-29] MEDS: NAPROXEN 500 MG TABLET (FP) PO PRN (09:24)
[2018-10-29] MEDS: NICOTINE POLACRILEX 4 MG GUM BUC PRN (09:25)
== END 2018-10-29 09:25 | disposition home or self-care (01) | DRG 895 ==
LOC: YASAS 08:19 → Y3W 10:47
PROVIDERS: ADMIT Psychiatry & Neurology Psychiatry; ATTEND Psychiatry & Neurology Psychiatry
PROC: HZ42ZZZ Group Counseling for Substance Abuse Treatment, Cognitive-Behavioral (ICD-10-PCS; principal; 2018-09-29)
DX: F10.20 Alcohol dependence, uncomplicated (principal); F14.20 Cocaine dependence, uncomplicated; F19.282 Other psychoactive substance dependence with psychoactive substance-induced sleep disorder; F12.20 Cannabis dependence, uncomplicated; F17.210 Nicotine dependence, cigarettes, uncomplicated; F25.9 Schizoaffective disorder, unspecified; B35.3 Tinea pedis
CPT/HCPCS: 36415; 80053; 81003; 85027; 86593; 93005; 93010